=== PATIENT | male | born 1950 | race Two or more races ===

== ENCOUNTER 2018-02-23 06:52 | Day surgery (SDC) | payer MEDICARE, MEDICAID ==
[~2018-02-23] VITALS: Ht 170.2 cm; Wt 90.9 kg
[~2018-02-23 06:52] MED LIST: ASPI-611 PO; ATEN100T6 PO; CHOL100046 PO; ERTA1VIA IV; FERR324T4 PO; FLO0.4C PO; NOVRI SQ; NPH,100V SQ; OMEP20CA10 PO; ROSU20TA30 PO
[2018-02-23] MEDS ORDERED: fentaNYL/PF 50MCG/1 ML 2ML syringe ONE (06:55)
[2018-02-23] MEDS ORDERED: MIDAZolam 5mg/5ml vial ONE (06:56)
[2018-02-23 07:02] VITALS: BP 149/75
[2018-02-23 08:52] VITALS: BP 156/66
[2018-02-23 09:02] VITALS: BP 133/77
[2018-02-23 09:12] VITALS: BP 141/70
[2018-02-23 09:22] VITALS: BP 145/58
== END 2018-02-23 09:34 | disposition home or self-care (01) ==
LOC: GI LAB 06:52
PROVIDERS: ATTEND Internal Medicine Gastroenterology
DX: D12.2 Benign neoplasm of ascending colon (principal); D12.0 Benign neoplasm of cecum; D12.4 Benign neoplasm of descending colon; I12.9 Hypertensive chronic kidney disease with stage 1 through stage 4 chronic kidney disease, or unspecified chronic kidney disease; E11.22 Type 2 diabetes mellitus with diabetic chronic kidney disease; N18.4 Chronic kidney disease, stage 4 (severe); I25.810 Atherosclerosis of coronary artery bypass graft(s) without angina pectoris; K21.9 Gastro-esophageal reflux disease without esophagitis; N40.0 Benign prostatic hyperplasia without lower urinary tract symptoms; M19.90 Unspecified osteoarthritis, unspecified site; E11.21 Type 2 diabetes mellitus with diabetic nephropathy; E78.5 Hyperlipidemia, unspecified; Z95.1 Presence of aortocoronary bypass graft; Z87.440 Personal history of urinary (tract) infections; Z95.828 Presence of other vascular implants and grafts; Z79.84 Long term (current) use of oral hypoglycemic drugs; Z79.82 Long term (current) use of aspirin; Z79.899 Other long term (current) drug therapy; Z98.890 Other specified postprocedural states
CPT/HCPCS: 45385; 99153; G0500; J2250; J3010; J7030; 88305; A4620

== ENCOUNTER 2019-03-20 11:55 | Day surgery (SDC) | payer MEDICARE, MEDICAID ==
[2019-03-15 10:39] LABS: BASOPHILS # (AUTO) 0.1 X10'3 (0-0.2); BASOPHILS % (AUTO) 1.2 % (0-1); EOSINOPHILS # (AUTO) 0.3 X10'3 (0-0.9); EOSINOPHILS % (AUTO) 2.7 % (0-6); HEMATOCRIT 34.8 % (42.0-52.0); HEMOGLOBIN 11.3 g/dl (14.0-17.9); LYMPHOCYTES # (AUTO) 1.1 X10'3 (1.1-4.8); LYMPHOCYTES % (AUTO) 11.7 % (21-51); MEAN CORPUSCULAR HEMOGLOBIN 28.2 PG (27.0-31.0); MEAN CORPUSCULAR HGB CONC 32.4 g/dL (33.0-36.5); MEAN CORPUSCULAR VOLUME 87.1 FL (78-98); MEAN PLATELET VOLUME 9.1 FL (7.4-10.4); MONOCYTES # (AUTO) 0.6 X10'3 (0-0.9); MONOCYTES % (AUTO) 6.5 % (2-12); NEUTROPHILS # (AUTO) 7.4 X10'3 (1.8-7.7); NEUTROPHILS % (AUTO) 77.9 % (42-75); PLATELET COUNT 201 X10'3 (140-440); WHITE BLOOD COUNT 9.5 X10'3 (4.5-11.0)
[2019-03-15 10:44] LABS: ALBUMIN 3.1 G/DL (3.4-5.0); ANION GAP 10 (8-16); BLOOD UREA NITROGEN 22 MG/DL (7-18); BUN/CREATININE RATIO 10.9 (5.4-32.0); CALCIUM 8.7 MG/DL (8.5-10.1); CHLORIDE 104 MMOL/L (99-107); CREATININE 2.02 MG/DL (0.60-1.10); GLUCOSE 181 MG/DL (70-104); PARTIAL THROMBOPLASTIN TIME 27 SECONDS (22-32); POTASSIUM 4.9 MMOL/L (3.5-5.1); SODIUM 139 MMOL/L (135-145); TOTAL CARBON DIOXIDE 25.5 MMOL/L (24-32); eGFR 33 ML/MIN
[2019-03-20] VITALS (8 sets, daily range): BP systolic 133–177; BP diastolic 61–87
[~2019-03-20] VITALS: Ht 170.2 cm; Wt 95.3 kg
[~2019-03-20 11:55] MED LIST changes: -FLO0.4C PO; -OMEP20CA10 PO; +OMEP20CA11 PO; -ROSU20TA30 PO; +ROSU20TA31 PO
[2019-03-20] MEDS ORDERED: diphenhydrAMINE 25mg capsule PO PRN (12:20)
[2019-03-20] MEDS ORDERED: LORazepam 0.5 MG tablet PO PRN (12:20)
[2019-03-20] MEDS ORDERED: normal saline 1,000 ML IV SCH (12:20)
[2019-03-20] MEDS ORDERED: ROSU40TA PO (15:24)
[2019-03-20] MEDS ORDERED: LINA5TAB4 PO (15:24)
[2019-03-20] MEDS ORDERED: INSU100C4 SQ (15:24)
[2019-03-20] MEDS ORDERED: CHOL200026 PO (15:24)
[2019-03-20] MEDS ORDERED: NPH,100V2 SQ (15:24)
[2019-03-20] MEDS ORDERED: iohexol 350MG/ML 100ml bottle IV ONE (17:47)
[2019-03-20] MEDS ORDERED: LIDOcaine 1% (10mg/ml)w/preservative injection 20ml MDV ONE (17:47)
[2019-03-20] MEDS ORDERED: fentaNYL/PF 50MCG/1 ML 2ML syringe ONE (18:30)
[2019-03-20] MEDS ORDERED: midazolam 2 mg/2 ml injection ONE (18:30)
[2019-03-20] MEDS ORDERED: ondansetron/PF 4mg/2ml inj IV PRN (19:20)
[2019-03-20] MEDS ORDERED: OXAZEpam 15mg capsule PO PRN (19:20)
[2019-03-20] MEDS ORDERED: acetaminophen 325mg tablet PO PRN (19:20)
[2019-03-20] MEDS ORDERED: HYDROcodone/acetaminophen 5mg/325mg tablet PO PRN (19:20)
[2019-03-20] MEDS ORDERED: proCHLORperazine 10 MG/2 ml inj IV PRN (19:20)
[2019-03-20] MEDS ORDERED: HYDROcodone/acetaminophen 10/325mg tab PO PRN (19:20)
== END 2019-03-20 20:45 | disposition home or self-care (01) ==
LOC: SSTAY O 11:55
PROVIDERS: ATTEND Internal Medicine Interventional Cardiology
DX: I25.10 Atherosclerotic heart disease of native coronary artery without angina pectoris (principal); I12.9 Hypertensive chronic kidney disease with stage 1 through stage 4 chronic kidney disease, or unspecified chronic kidney disease; N18.9 Chronic kidney disease, unspecified; E11.9 Type 2 diabetes mellitus without complications; E87.5 Hyperkalemia; N40.0 Benign prostatic hyperplasia without lower urinary tract symptoms; D64.9 Anemia, unspecified; Z79.4 Long term (current) use of insulin; Z95.1 Presence of aortocoronary bypass graft; Z79.899 Other long term (current) drug therapy; Z79.82 Long term (current) use of aspirin
CPT/HCPCS: 36415; 80048; 82948; 85025; 85610; 85730; 93005; 93455; 99152; 99153; C1769; J1644; J2001; J2250; J3010; J7030; Q0163; Q9967; 93454; A4620; A6258

== ENCOUNTER 2023-06-04 15:13 | Emergency (ER) | payer BC, MEDICAID ==
[~2023-06-04] VITALS: Ht 170.2 cm; Wt 90.9 kg
[~2023-06-04 15:13] MED LIST changes: -CHOL100046 PO; +CHOL200026 PO; -ERTA1VIA IV; +INSU100C4 SQ; +LINA5TAB4 PO; -NOVRI SQ; -NPH,100V SQ; +NPH,100V2 SQ; -OMEP20CA11 PO; +OMEP20CA15 PO; -ROSU20TA31 PO; +ROSU40TA PO
[2023-06-04 15:18] VITALS: BP 185/104; PULSE 80; RESP 16; TEMP 97.9; O2SAT 99
[2023-06-04] MEDS ORDERED: CYCL-1 PO (17:06)
[2023-06-04] MEDS ORDERED: NAPR-56 PO (17:06)
[2023-06-04] MEDS ORDERED: cyclobenzaprine 10mg tablet PO ONE (17:35)
== END 2023-06-04 17:58 | disposition home or self-care (01) ==
LOC: ER 15:13
DX: M54.31 Sciatica, right side (principal)
CPT/HCPCS: 99283

== ENCOUNTER 2023-08-20 09:33 | Emergency (ER) | payer BC, MEDICAID ==
[~2023-08-20] VITALS: Ht 170.2 cm; Wt 93.6 kg
[~2023-08-20 09:33] MED LIST changes: +CYCL-1 PO
[2023-08-20] MEDS: morphine 2 MG/ML inj. syringe IV PRN (12:48)
[2023-08-20] MEDS: ondansetron/PF 4mg/2ml inj IV ONE (12:49)
[2023-08-20] MEDS ORDERED: OXYC-658 PO (14:06)
[2023-08-20] MEDS ORDERED: IBUP-1984 PO (14:06)
[2023-08-20 14:49] VITALS: TEMP 98.2
[2023-08-20 15:15] VITALS: BP 125/65; PULSE 136; RESP 16; O2SAT 99
== END 2023-08-20 15:20 | disposition home or self-care (01) ==
LOC: ER 09:33
DX: M25.551 Pain in right hip (principal); I10 Essential (primary) hypertension; E11.9 Type 2 diabetes mellitus without complications; Z79.899 Other long term (current) drug therapy; Z79.82 Long term (current) use of aspirin; Z79.84 Long term (current) use of oral hypoglycemic drugs
CPT/HCPCS: 72192; 96374; 96375; 99285; J2270; J2405

== ENCOUNTER 2023-11-09 10:32 | Day surgery (SDC) | payer BC, MEDICAID ==
[2023-11-04 11:57] LABS: APTT 25 SECONDS (22-32); PROTHROMBIN TIME 10.9 SECONDS (9.0-12.0)
[2023-11-04 11:58] LABS: ALANINE AMINOTRANSFERASE 16 U/L (12-78); ALBUMIN 3.1 G/DL (3.4-5.0); ALBUMIN/GLOBULIN RATIO 0.7 (1.1-1.5); ALKALINE PHOSPHATASE 103 IU/L (46-116); ANION GAP 8 (8-16); ASPARTATE AMINO TRANSFERASE 10 U/L (10-37); BILIRUBIN,TOTAL 0.4 MG/DL (0.1-1.0); BLOOD UREA NITROGEN 33 MG/DL (7-18); BUN/CREATININE RATIO 10.2 (10.0-20.0); CALCIUM 9.5 MG/DL (8.5-10.1); CHLORIDE 106 MMOL/L (99-107); CHOLESTEROL 99 MG/DL (0-200); CREATININE 3.23 MG/DL (0.60-1.10); GLUCOSE 101 MG/DL (70-104); HDL CHOLESTEROL 49 MG/DL (35-60); LDL CHOLESTEROL 35 MG/DL (50-100); POTASSIUM 4.6 MMOL/L (3.5-5.1); SODIUM 141 MMOL/L (135-145); TOTAL CARBON DIOXIDE 26.8 MMOL/L (24-32); TOTAL PROTEIN 7.5 G/DL (6.4-8.2); TRIGLYCERIDES 94 MG/DL (20-135); eGFR 19 ML/MIN
[2023-11-04 12:06] LABS: BASOPHILS # (AUTO) 0.1 X10'3 (0-0.2); EOSINOPHILS # (AUTO) 0.3 X10'3 (0-0.9); EOSINOPHILS % (AUTO) 3.6 % (0-6); HEMATOCRIT 36.7 % (42.0-52.0); HEMOGLOBIN 12.1 g/dl (14.0-17.9); LYMPHOCYTES # (AUTO) 1.1 X10'3 (1.1-4.8); LYMPHOCYTES % (AUTO) 12.7 % (21-51); MEAN CORPUSCULAR HEMOGLOBIN 30.8 PG (27.0-31.0); MEAN CORPUSCULAR HGB CONC 32.9 g/dL (33.0-36.5); MEAN CORPUSCULAR VOLUME 93.8 FL (78-98); MONOCYTES # (AUTO) 0.5 X10'3 (0-0.9); MONOCYTES % (AUTO) 5.5 % (2-12); NEUTROPHILS # (AUTO) 6.4 X10'3 (1.8-7.7); NEUTROPHILS % (AUTO) 77.2 % (42-75); PLATELET COUNT 183 X10'3 (140-440); RED BLOOD COUNT 3.91 X10'6 (4.70-6.10); RED CELL DISTRIBUTION WIDTH 15.2 % (11.5-14.5); WHITE BLOOD COUNT 8.3 X10'3 (4.5-11.0)
[2023-11-09] VITALS (10 sets, daily range): BP systolic 98–154; BP diastolic 48–72; PULSE 56–103; RESP 12–20; TEMP 97.9; O2SAT 96–100
[~2023-11-09] VITALS: Ht 170.2 cm; Wt 87.8 kg
[2023-11-09] MEDS: normal saline 1000ml 1,000 ML IV SCH (11:15)
[2023-11-09] MEDS ORDERED: LABE200T8 PO (11:21)
[2023-11-09] MEDS ORDERED: FERR325T29 PO (11:21)
[2023-11-09] MEDS ORDERED: CALC0.2535 PO (11:21)
[2023-11-09] MEDS ORDERED: FURO40TA4 PO (11:21)
[2023-11-09] MEDS ORDERED: APIX5TAB3 PO (11:21)
[2023-11-09] MEDS ORDERED: AMI200T PO (11:21)
[2023-11-09] MEDS ORDERED: LOSA100T58 PO (11:21)
[2023-11-09] MEDS: fentaNYL/PF 50MCG/1 ML 2ML syringe IV ONE (12:26)
[2023-11-09] MEDS: MIDAZolam 1mg/ml 10ml vial IV ONE (12:26)
== END 2023-11-09 13:40 | disposition home or self-care (01) ==
LOC: SSTAY O 10:32
PROVIDERS: ATTEND Student in an Organized Health Care Education/Training Program
DX: I48.91 Unspecified atrial fibrillation (principal); I44.4 Left anterior fascicular block
CPT/HCPCS: 36415; 80053; 80061; 85025; 85610; 85730; 92960; 93005; J2250; J3010; J7030; A4620

== ENCOUNTER → 2023-12-21 | Outpatient (CLI) | payer BC, MEDICAID ==
[~2023-12-21] VITALS: Ht 170.2 cm; Wt 86.2 kg
[2023-12-21] VITALS (7 sets, daily range): BP systolic 138–177; BP diastolic 65–79; PULSE 86–95; RESP 14–18; O2SAT 99–100
[~2023-12-21] MED LIST changes: +AMI200T PO; +APIX5TAB3 PO; -ASPI-611 PO; -ATEN100T6 PO; +CALC0.2535 PO; -FERR324T4 PO; +FERR325T29 PO; +FURO40TA4 PO; +LABE200T8 PO; -LINA5TAB4 PO; +LOSA100T58 PO
[2023-12-21] MEDS: regadenoson 0.4mg/5ml syringe IV ONE (10:22)
== END | disposition home or self-care (01) ==
LOC: RAD 08:10
PROVIDERS: ATTEND Internal Medicine Interventional Cardiology
DX: I08.0 Rheumatic disorders of both mitral and aortic valves (principal); I48.91 Unspecified atrial fibrillation
CPT/HCPCS: 78452; 93017; 93306; A9500; J2785